=== PATIENT | female | born 1960 | race Caucasian/White ===

== ENCOUNTER 2018-03-24 08:11 | Day surgery (SDC) | payer OTHER ==
[~2018-03-24] VITALS: Ht 165.1 cm; Wt 63.5 kg
[2018-03-24 08:36] VITALS: BP 111/76
[2018-03-24 13:55] VITALS: BP 136/87
== END 2018-03-24 12:10 | disposition home or self-care (01) ==
LOC: GI 08:11 → OR 11:00 → GI 12:10
PROVIDERS: Internal Medicine Gastroenterology
PROC: 0DBN8ZZ Excision of Sigmoid Colon, Via Natural or Artificial Opening Endoscopic (ICD-10-PCS; principal; 2018-03-24 10:30)
DX: Z12.11 Encounter for screening for malignant neoplasm of colon (principal); K57.30 Diverticulosis of large intestine without perforation or abscess without bleeding; K63.5 Polyp of colon; K21.9 Gastro-esophageal reflux disease without esophagitis; F17.210 Nicotine dependence, cigarettes, uncomplicated
CPT/HCPCS: 45378; J1200; J1610; J2250; J2310; J3010; J3490